=== PATIENT | female | born 1945 | race Caucasian/White ===

== ENCOUNTER 2019-12-31 02:53 | Inpatient (IN) | payer MEDICARE, OTHER ==
[~2019-12-31] VITALS: Ht 167.6 cm; Wt 93.5 kg
--- NOTE | 2019-12-31 03:06 | NUR ---
PT ADELINE [facility] FROM THE [facility] WHERE SHE WAS VACATIONING. BROUGHT IN AFTER HAVING SUDDEN ONSET CHEST PAIN THAT WAS SHARP/TIGHT/PRESSURE. PT STATES IT IS CONSTANT, WAS FOUND TO BE IN A-FIB WITH RVR, NO HX OF A-FIB. PAIN NOW 4/10 500 NS ENROUTE, 50 MCG FENTANYL PT CHANGED INTO GOWN, RESTING ON GURNEY, APPEARS COMFORTABLE, ASSISTED TO BS COMMODE. STAND BY ASSIST. PT DENIES SOB, FELT HER HEART WAS RACING, DENIES DIZZINESS OR LIGHTHEADEDNESS. CHARLEE WILLIAMSON AT BS FOR EVAL AND POC PT PALCED ON SPO2/BP/ECG MONITORING. WCTM.
[2019-12-31] MEDS ORDERED: PROPOFOL 10 MG/ML, 20ML IVPush ONE (03:30)
[2019-12-31] MEDS ORDERED: SODIUM CHLORIDE FLUSH 10ML SYR IVF ONE (03:30)
[2019-12-31] MEDS ORDERED: PROPOFOL 10 MG/ML, 20ML ONE ×2 (03:32→03:33)
[2019-12-31 03:53] LABS: BASOPHILS # (AUTO) 0.03 x10^3/uL (0-0.1); BASOPHILS % (AUTO) 1 % (0-1); EOSINOPHILS # (AUTO) 0.16 x10^3/uL (0-0.4); EOSINOPHILS % (AUTO) 3 % (1-7); LYMPHOCYTES # (AUTO) 1.69 x10^3/uL (1-3.4); LYMPHOCYTES % (AUTO) 28 % (22-44); MD NO; MEAN CORPUSCULAR HEMOGLOBIN 30.9 pg (27.0-34.8); MEAN CORPUSCULAR HGB CONC 33.6 g/dL (32.4-35.8); MONOCYTES # (AUTO) 0.51 x10^3/uL (0.2-0.8); MONOCYTES % (AUTO) 8 % (2-9); NEUTROPHILS # (AUTO) 3.75 x10^3/uL (1.8-6.8); NEUTROPHILS % (AUTO) 61 % (42-75); PLATELET COUNT 291 x10^3/uL (130-400); RED BLOOD COUNT 4.34 x10^6/uL (3.82-5.3); RED CELL DISTRIBUTION WIDTH 13.3 % (9.6-15.2)
[2019-12-31 04:01] LABS: ANION GAP 13 mmol/L (5-15); CALCIUM 9.2 mg/dL (8.5-10.1); CHLORIDE 99 mmol/L (98-107)
[2019-12-31 04:08] LABS: ALANINE AMINOTRANSFERASE 43 U/L (12-78); ALKALINE PHOSPHATASE 106 U/L (45-117); BILIRUBIN,TOTAL 0.2 mg/dL (0.2-1.0); CREATININE 0.82 mg/dL (0.55-1.02); FREE T4 (FREE THYROXINE) 1.43 ng/dL (0.76-1.46); TOTAL PROTEIN 8.2 g/dL (6.4-8.2); TROPONIN I < 0.015 ng/mL (0.000-0.045)
--- NOTE | 2019-12-31 04:15 | NUR ---
LATE ENTRY D/T PT CARE: JAIME ERIC AT , PT EDUCATED ON SYNCHRONIZED CARDIOVERSION, CONSENTS SIGNED, PT NAD, DENIES ADDITIONAL NEEDS. PLACED ON MONITORING. 403 TIME OUT PERFORMED, 404 PROCEDURE STARTED, 412 COMPLETED, SEE PAPER WORK FOR ADDITIONAL INFORMATION PT TOLERATED WELL, UNSUCCESSFUL CARDIOVERSION. WCTM.
[2019-12-31] MEDS ORDERED: AMIODARONE 150 MG in DEXTROSE 5% 100 ML IV ONE (04:30)
[2019-12-31] MEDS ORDERED: POTASSIUM CHLORIDE 20 MEQ TAB.ER.PRT PO ONE (04:30)
[2019-12-31] MEDS ORDERED: FILTER 0.22 MICRON IV ONE (04:30)
--- NOTE | 2019-12-31 04:41 | NUR ---
Note michael in EDM - 12/31/19 at 0443 by QUIRINO LATE ENTRY D/T PT CARE: JAIME ERIC AT , PT EDUCATED ON SYNCHRONIZED CARDIOVERSION, CONSENTS SIGNED, PT NAD, DENIES ADDITIONAL NEEDS. PLACED ON MONITORING. 0404 TIME OUT PERFORMED, SEE PAPER WORK FOR ADDITIONAL INFORMATION PT TOLERATED WELL, UNSUCCESSFUL CARDIOVERSION. TM.
--- NOTE | 2019-12-31 04:44 | NUR ---
PT NAD, RESTING ON GURNEY, CONVERTED BACK TO NSR AT THIS TIME. AT BS. PT UNABLE TO REMEMBER ALL MEDICATIONS. PT TAKES LEVOTHYROXINE, ATORVASTATIN, AMLODIPINE, AND ONE OTHER MED. DOSES UNKNOWN. WCTM. PT TO BE ADMITTED.
[2019-12-31] MEDS ORDERED: SODIUM CHLORIDE 0.9% 1,000 ML IV SCH (04:46)
[2019-12-31] MEDS: AMIODARONE 450 MG in DEXTROSE 5% 241 ML IV PRN ×2 (04:46→14:05)
[2019-12-31] MEDS ORDERED: OXYcodone IR 5MG TABLET PO PRN (05:00)
[2019-12-31] MEDS ORDERED: ONDANSETRON 2MG/ML, 2ML IVPush PRN (05:00)
[2019-12-31] MEDS ORDERED: LABETALOL 5MG/ML, 20ML IVPush PRN (05:00)
[2019-12-31] MEDS ORDERED: morphine SULFATE 10 MG/ML, 1ML IVPush PRN (05:00)
[2019-12-31] MEDS ORDERED: POTASSIUM CHLORIDE 40 MEQ in SODIUM CHLORIDE 0.9% 500 ML IV ONE (05:00)
[2019-12-31] MEDS ORDERED: ONDANSETRON ODT 4 MG PO PRN (05:00)
[2019-12-31] MEDS ORDERED: PROMETHAZINE 25 MG/ML, 1ML IM PRN (05:00)
[2019-12-31] MEDS ORDERED: BISACODYL 10 MG SUPP PR PRN (05:00)
[2019-12-31] MEDS ORDERED: DOCUSATE 100 MG CAPSULE PO PRN (05:00)
[2019-12-31] MEDS ORDERED: ACETAMINOPHEN 325 MG TABLET PO PRN (05:00)
[2019-12-31] MEDS ORDERED: POLYETHYLENE GLYCOL 17 GM PACKET PO PRN (05:00)
[2019-12-31] MEDS ORDERED: POTASSIUM CHLORIDE 20 MEQ TAB.ER.PRT ONE (05:27)
[2019-12-31 05:34] LABS: FREE T4 (FREE THYROXINE) 1.4 ng/dL (0.76-1.46)
--- NOTE | 2019-12-31 05:52 | NUR ---
TASK RN: PT MOVED TO HOSP BED, ASSISTED TO BSC BACK TO BED, NOW RESTING AT BEDSIDE MARCOS
[2019-12-31] MEDS ORDERED: ENOXAPARIN 40 MG/0.4 ML ONE (06:07)
[2019-12-31] MEDS ORDERED: ENOXAPARIN 80 MG/0.8 ML ONE (06:14)
[2019-12-31] MEDS: ENOXAPARIN 80 MG/0.8 ML SQ SCH ×2 (06:17→17:47)
--- NOTE | 2019-12-31 06:45 | NUR ---
PT RESTING ON HOSPITAL BED, MEDICATED PER JUN, BREAKFAST TRAY ORDERED, NAD, APPEARS COMFORTABLE, LIGHTS DIMMED FOR COMFORT, AT BED, CALL LIGHT ON LAP, BED IN LOWEST POSITION, WCTM. WAITING FOR ADMIT BED.
--- NOTE | 2019-12-31 06:53 | NUR ---
PT MEDICATED PER JUN. BEDSIDE REPORT JARET ANDERSON, PT CARE TRANSFERRED AT THIS TIME.
--- NOTE | 2019-12-31 06:55 | NUR ---
PT RESTING, ON HOSPITAL BED, REPORT FROM RIKY
--- NOTE | 2019-12-31 07:37 | NUR ---
report to receptionist/telephone operator. pt ready to go
[2019-12-31 08:00] VITALS: BP 144/83
--- NOTE | 2019-12-31 08:02 | NUR ---
PT HAD BM, BSC SBA.
[2019-12-31 09:11] LABS: TROPONIN I < 0.015 ng/mL (0.000-0.045)
[2019-12-31 09:30] VITALS: BP 144/83
[2019-12-31 12:23] LABS: TROPONIN I < 0.015 ng/mL (0.000-0.045)
[2019-12-31] MEDS ORDERED: FILTER 0.22 MICRON IV PRN (13:30)
[2019-12-31] MEDS ORDERED: LOSA100T14 PO (13:42)
[2019-12-31] MEDS ORDERED: IBUP-1221 PO (13:42)
[2019-12-31] MEDS ORDERED: LEVO125T5 PO (13:42)
[2019-12-31] MEDS ORDERED: ATOR20TA37 PO (13:42)
[2019-12-31] MEDS ORDERED: HYDR25TA6 PO (13:42)
[2019-12-31 14:20] VITALS: BP 135/80
[2019-12-31] MEDS ORDERED: LOSA1TAB12 PO (15:48)
[2019-12-31] MEDS ORDERED: FLU VACC QS2020-21(6MOS UP)/PF 60MCG/0.5 ML SYR IM-VACC ONE (17:30)
[2019-12-31 19:05] VITALS: BP 145/84
[2019-12-31] MEDS ORDERED: ATORVASTATIN 20 MG TABLET PO SCH (21:00)
[2020-01-01 01:05] VITALS: BP 163/99
[2020-01-01] MEDS: ENOXAPARIN 80 MG/0.8 ML SQ SCH (04:54)
[2020-01-01 05:50] LABS: BASOPHILS # (AUTO) 0.04 x10^3/uL (0-0.1); BASOPHILS % (AUTO) 1 % (0-1); EOSINOPHILS # (AUTO) 0.15 x10^3/uL (0-0.4); EOSINOPHILS % (AUTO) 3 % (1-7); LYMPHOCYTES # (AUTO) 1.64 x10^3/uL (1-3.4); LYMPHOCYTES % (AUTO) 30 % (22-44); MD NO; MEAN CORPUSCULAR HEMOGLOBIN 30.7 pg (27.0-34.8); MEAN CORPUSCULAR HGB CONC 33.2 g/dL (32.4-35.8); MEAN PLATELET VOLUME 8.8 fL (7.4-10.4); MONOCYTES # (AUTO) 0.32 x10^3/uL (0.2-0.8); MONOCYTES % (AUTO) 6 % (2-9); NEUTROPHILS # (AUTO) 3.38 x10^3/uL (1.8-6.8); NEUTROPHILS % (AUTO) 61 % (42-75); PLATELET COUNT 258 x10^3/uL (130-400); RED CELL DISTRIBUTION WIDTH 13.2 % (9.6-15.2)
[2020-01-01 06:02] LABS: CALCIUM 8.8 mg/dL (8.5-10.1); CHLORIDE 100 mmol/L (98-107)
[2020-01-01 06:07] LABS: ALANINE AMINOTRANSFERASE 31 U/L (12-78); ALBUMIN 3.4 g/dL (3.4-5.0); ALKALINE PHOSPHATASE 75 U/L (45-117); ANION GAP 7 mmol/L (5-15); BILIRUBIN,TOTAL 0.7 mg/dL (0.2-1.0); CHOL/HDL RATIO 1.8; CHOLESTEROL, TOTAL 190 mg/dL (140-239); CREATININE 0.88 mg/dL (0.55-1.02); HDL CHOL % 56 % (28-40); HDL CHOLESTEROL (DIRECT) 107 mg/dL (40-60); LDL CHOLESTEROL,CALCULATED 67 mg/dL (54-169); LDL/HDL RATIO 0.6 (0.5-3.0); TRIGLYCERIDES 80 mg/dL (50-200); VLDL CHOLESTEROL 16 mg/dL (0-25)
[2020-01-01 07:28] VITALS: BP 153/84
[2020-01-01] MEDS ORDERED: LEVOTHYROXINE 125 MCG TABLET PO SCH (09:00)
[2020-01-01] MEDS ORDERED: LOSARTAN 100 MG TAB PO SCH (09:00)
[2020-01-01] MEDS ORDERED: POTASSIUM CHLORIDE 20 MEQ TAB.ER.PRT PO SCH (09:00)
[2020-01-01] MEDS ORDERED: AMIODARONE 200 MG TABLET PO SCH (09:00)
[2020-01-01] MEDS ORDERED: ASPI81TA45 PO (11:54)
[2020-01-01] MEDS ORDERED: POTA20TA6 PO (11:54)
[2020-01-01] MEDS ORDERED: AMIO200T42 PO (11:54)
[2020-01-01 13:07] VITALS: BP 153/89
[2020-01-01] MEDS ORDERED: ENOXAPARIN 100 MG/ML SQ SCH (17:00)
== END 2020-01-01 14:02 | disposition home or self-care (01) | DRG 309 ==
LOC: ED 04:26 → EDIP 04:49 → 5SO 08:06 → DCLOUNGE 01-01 13:53
PROVIDERS: ADMIT Internal Medicine; ATTEND Hospitalist
PROC: 5A2204Z Restoration of Cardiac Rhythm, Single (ICD-10-PCS; principal; 2019-12-31)
DX: I48.0 Paroxysmal atrial fibrillation (principal); D68.59 Other primary thrombophilia; E87.6 Hypokalemia; E03.9 Hypothyroidism, unspecified; E78.5 Hyperlipidemia, unspecified; I10 Essential (primary) hypertension; E66.9 Obesity, unspecified; Z68.33 Body mass index [BMI] 33.0-33.9, adult
CPT/HCPCS: 36415; 71045; 80053; 80061; 83036; 83735; 84132; 84439; 84443; 84484; 85025; 90686; 92960; 93005; 93306; 96374; 99291; G0378; J1650; J3480; J7060; J0282; J7030; J7040